=== PATIENT | female | born 1990 | race Caucasian/White ===

== ENCOUNTER → 2020-04-27 10:30 | Outpatient (CLI) | payer OTHER, SELFPAY ==
--- NOTE | 2020-04-27 | DI.CT.S_ITS ---
PROCEDURE: CT LE RT WO CON INDICATIONS: Pain in right ankle and joints of right foot. Reported ankle fracture in October of last year, persistent pain. TECHNIQUE: Noncontrast 1-1.5 mm axial sections acquired from above the tibiotalar joint to the bottom of the calcaneus, with coronal and sagittal reformats. COMPARISON: None. FINDINGS: Image quality: Excellent. Bones: No nonunion fracture is found. No additional fracture is identified beyond the diagonal healing or healed fracture involving the distal fibula, located at the metadiaphyseal junction, with clearly visualized osseous bridging across the fracture planes. No posttraumatic seroma or hematoma is found. Soft tissues: No ligamentous laxity identified, and no osteochondral defect is found. IMPRESSION: Osseous union across the diagonal distal fibular metadiaphyseal junction fracture, which is healing or healed in near normal anatomic alignment. An additional area of healed fracture or nonunion fracture is not found and no soft tissue injury is seen. Dictated by: Angel Vann M.D. on 04/27/2020 at 10:08 Approved by: Angel Vann M.D. on 04/27/2020 at 10:18
== END ==
PROVIDERS: PCP Nurse Practitioner Family; Referring Provider Orthopaedic Surgery Foot and Ankle Surgery; Visit Provider Orthopaedic Surgery Foot and Ankle Surgery
DX: M25.571 Pain in right ankle and joints of right foot (principal); S82.831D Other fracture of upper and lower end of right fibula, subsequent encounter for closed fracture with routine healing; X58.XXXD Exposure to other specified factors, subsequent encounter
CPT/HCPCS: 73700

== ENCOUNTER → 2021-06-15 13:08 | Outpatient (CLI) | payer OTHER, SELFPAY ==
--- NOTE | 2021-06-15 13:10 | DI.US.S_ITS ---
PROCEDURE: US PELVIC COMPLETE INDICATIONS: EXCESSIVE AND FREQUENT MENSES TECHNIQUE: Real-time scanning was performed of the pelvic organs, with image documentation. Additional endovaginal scanning was necessary due to incomplete visualization of the adnexal and endometrial structures by transabdominal scanning. COMPARISON: None. FINDINGS: Uterus: Uterus is anteverted and normal in size at 7.3 x 4.9 x 3.6 cm. The myometrium is homogeneous without mass. The endometrium measures 11.3 mm in combined thickness. Normal uterine vascularity. The cervix contains a few nabothian cysts but appears otherwise normal. Ovaries: The right ovary measures 3.6 x 2.8 x 2.0 cm for a volume of 10.5 cc. There is an involuting complex cyst measuring 1.6 cm. The left ovary measures 4.3 x 3.3 x 1.7 cm for a volume of 12.5 cc . There is a 2.1 cm solid nodule with mild peripheral vascularity within the left ovary. Other: No pathologic free abdominal or pelvic fluid. IMPRESSION: 1. Normal uterus. 2. Probable involuting left ovarian corpus luteum. 3. 1.6 cm hemorrhagic or proteinaceous right ovarian cyst. Dictated by: Dodie Fontenot M.D. on 06/15/2021 at 17:25 Approved by: Dodie Fontenot M.D. on 06/15/2021 at 17:30
== END ==
PROVIDERS: PCP Nurse Practitioner Family; Referring Provider Nurse Practitioner Family; Visit Provider Nurse Practitioner Family
DX: N92.1 Excessive and frequent menstruation with irregular cycle (principal); N83.201 Unspecified ovarian cyst, right side
CPT/HCPCS: 76830; 76856